=== PATIENT | female | born 1985 ===

== ENCOUNTER 2024-11-13 09:50 | Inpatient (IN) | payer OTHER ==
[~2024-11-13] VITALS: Ht 160 cm; Wt 52.2 kg
[2024-11-13] MEDS ORDERED: SINGULAIR10 MG PO (10:26)
[2024-11-13] MEDS ORDERED: BENADRYL25 MG PO (10:26)
[2024-11-13] MEDS ORDERED: DICY20TA PO (10:27)
[2024-11-13] MEDS ORDERED: PROTONIX40 MG PO (10:27)
[2024-11-13 12:11] LABS: RH POSITIVE
[2024-11-21] MEDS ORDERED: levoFLOXacin IN DEXTROSE 5 % 5 MG/ML PIGGYBAG IV ONE (13:00)
[2024-11-21] MEDS ORDERED: THROMBIN,HU/FIBRINOGEN/CALCIUM 10 ML SYRINGE TOP ONE (13:15)
[2024-11-21] MEDS ORDERED: BUPIVACAINE HCL 30 ML VIAL IJ ONE (13:15)
[2024-11-21] MEDS ORDERED: LIDOCAINE HCL 1%/EPINEPHRINE 20ML VIAL IJ ONE (13:15)
[2024-11-21] MEDS ORDERED: METRONIDAZOLE/SODIUM CHLORIDE 500 MG/100 ML PIGGYBACK IV ONE (13:15)
[2024-11-21] MEDS ORDERED: POVIDONE-IODINE 118 ML BOTT TOP ONE (13:15)
[2024-11-21] MEDS ORDERED: CELECOXIB 200 MG CAPSULE PO STA (14:29)
[2024-11-21] MEDS ORDERED: RINGERS SOLUTION,LACTATED 1,000 ML IV SCH (14:29)
[2024-11-21] MEDS ORDERED: SUGAMMADEX SODIUM 200 MG/2 ML VIAL IV ONE (14:30)
[2024-11-21] MEDS ORDERED: ACETAMINOPHEN 325 MG TABLET PO SCH (14:30)
[2024-11-21] MEDS ORDERED: MORPHINE SULFATE 4 MG/ML VIAL IV ONE ×2 (15:30→17:50)
[2024-11-21] MEDS ORDERED: GABAPENTIN 100 MG CAPSULE PO SCH (17:00)
[2024-11-21] MEDS ORDERED: ALBUTEROL SULFATE 3 ML/2.5 MG AMPUL.NEB IH SCH (18:00)
[2024-11-21] MEDS ORDERED: ONDANSETRON HCL 2 MG/ML VIAL IV SCH (18:00)
[2024-11-21 19:30] LABS: HEMATOCRIT 35.7 % (36.0-45.00); MEAN CELL VOLUME 93.8 fL (80.00-100.00); MEAN CORPUSCULAR HEMOGLOBIN 31.5 pg (27.00-32.0); MEAN CORPUSCULAR HGB CONC 33.6 g/dl (32.0-36.0); PLATELET COUNT 300 K/uL (150-450); RED CELL DISTRIBUTION WIDTH 12.5 % (11.5-14.5)
[2024-11-21 19:52] LABS: CALCIUM 8.8 mg/dL (8.5-10.1); CREATININE SERUM 0.45 mg/dL (0.55-1.02); GFR 153.54; POTASSIUM 4.43 mEq/L (3.5-5.1)
[2024-11-21 20:45] VITALS: BP 115/58
[2024-11-22 00:39] VITALS: BP 99/63
[2024-11-22 03:01] LABS: HEMATOCRIT 32.5 % (36.0-45.00); MEAN CELL VOLUME 93.1 fL (80.00-100.00); MEAN CORPUSCULAR HEMOGLOBIN 31.6 pg (27.00-32.0); MEAN CORPUSCULAR HGB CONC 33.9 g/dl (32.0-36.0); PLATELET COUNT 287 K/uL (150-450); RED BLOOD COUNT 3.49 M/uL (4.00-6.00); RED CELL DISTRIBUTION WIDTH 12.4 % (11.5-14.5)
[2024-11-22 03:21] LABS: CALCIUM 8.5 mg/dL (8.5-10.1); CREATININE SERUM 0.44 mg/dL (0.55-1.02); GFR 157.58; POTASSIUM 4.12 mEq/L (3.5-5.1)
[2024-11-22 08:47] VITALS: BP 93/60
[2024-11-22 16:06] VITALS: BP 119/73
[2024-11-22] MEDS ORDERED: RINGERS SOLUTION,LACTATED 1,000 ML IV SCH (17:00)
== END 2024-11-22 16:46 | disposition home or self-care (01) | DRG 743 ==
LOC: O/R 11-21 05:00 → OB/GYN 11-21 05:00 → SURH 11-21 12:00 → OB/GYN 11-21 16:56
PROVIDERS: Surgery; Urology; ADMIT Obstetrics & Gynecology Gynecology; ATTEND Obstetrics & Gynecology Gynecology
PROC: 0DNN4ZZ Release Sigmoid Colon, Percutaneous Endoscopic Approach (ICD-10-PCS; 2024-11-21)
PROC: 0UN14ZZ Release Left Ovary, Percutaneous Endoscopic Approach (ICD-10-PCS; 2024-11-21)
PROC: 0T788DZ Dilation of Bilateral Ureters with Intraluminal Device, Via Natural or Artificial Opening Endoscopic (ICD-10-PCS; 2024-11-21)
PROC: 3E0F7GC Introduction of Other Therapeutic Substance into Respiratory Tract, Via Natural or Artificial Opening (ICD-10-PCS; 2024-11-21)
PROC: 0UT94ZZ Resection of Uterus, Percutaneous Endoscopic Approach (ICD-10-PCS; principal; 2024-11-21 12:00)
PROC: 0DTJ4ZZ Resection of Appendix, Percutaneous Endoscopic Approach (ICD-10-PCS; 2024-11-21 12:00)
PROC: 0DNW4ZZ Release Peritoneum, Percutaneous Endoscopic Approach (ICD-10-PCS; 2024-11-21 12:00)
DX: D25.1 Intramural leiomyoma of uterus (principal); J45.20 Mild intermittent asthma, uncomplicated; N80.8 Other endometriosis

== ENCOUNTER → 2025-08-19 | Outpatient (CLI) | payer OTHER ==
[~2025-08-19] MED LIST: BENADRYL25 MG PO; DICY20TA PO; PROTONIX40 MG PO; SINGULAIR10 MG PO
== END | disposition home or self-care (01) ==
LOC: RAD 08:50
DX: K59.04 Chronic idiopathic constipation (principal)